=== PATIENT | male | born 1960 ===

== ENCOUNTER 2023-04-03 01:19 | Emergency (ER) | payer SELFPAY ==
[~2023-04-03] VITALS: Ht 175.6 cm; Wt 68.0 kg
--- NOTE | 2023-04-03 02:51 | ED Abdominal Pain ---
General Chief Complaint: Abdominal/GI Problems Stated Complaint: VOMITING Nursing Triage Note: TO ROOM VIA W/C WITH COMPLAINT OF ABDOMINAL PAIN. PATIENT STATES STARTED THIS EVENING, HAS HAD A COLD LAST WEEK. PATIENT VOMITTED X8. DENIES DIARRHEA. Source of Information: Patient Exam Limitations: No Limitations History of Present Illness Date Seen by Provider: Apr 03, 2023 Time Seen by Provider: 02:51 Initial Comments Patient is a 63-year-old male brought to the emergency department by his significant other chief complaint epigastric abdominal pain onset this evening with nausea vomiting and dry heaves. He has had "cold symptoms" according to his significant other for the last week. Cough congestion, runny nose. He does not drink alcohol. No sick contacts that the girlfriend is aware of. He states that he did not vomit any coffee-ground emesis or blood. Last bowel movement was yesterday and he reports it was normal. No problems with urination. At the time of my evaluation the patient has been resting in the examination room, pain-free. He states his nausea has also been improving. He has never had anything quite like this before. Denies headache. Denies recent fever. Does not take any daily medications. No allergies to medications. No prior abdominal surgeries. Timing/Duration: 4-6 Hours Severity/Quality: Severe, Sharp Location: Epigastric Radiation: No Radiation Activities at Onset: None Associated Symptoms: Denies Symptoms Allergies and Home Medications Allergies Coded Allergies: No Known Drug Allergies (Unverified , 04/03/23) Patient Home Medication List Home Medication List Reviewed: Yes Ondansetron (Ondansetron Odt) 4 Mg Tab.rapdis, 4 MG SL Q6H PRN for NAUSEA/VOMITING Prescribed by: KERRIE ALVARADO on 04/03/23 0350 Review of Systems Review of Systems Constitutional: see HPI Respiratory: No Symptoms Reported Cardiovascular: No Symptoms Reported Gastrointestinal: Abdominal Pain; Denies Blood Streaked Stools, Denies Diarrhea; Nausea; Denies Rectal Bleeding; Vomiting Genitourinary: No Symptoms Reported Musculoskeletal: no symptoms reported Skin: no symptoms reported Psychiatric/Neurological: No Symptoms Reported All Other Systems Reviewed Negative Unless Noted: Yes Past Mvaripe-Jbrpyb-Ejhena Hx Patient Social History Tobacco Use?: Yes Tobacco type used: Cigarettes Smoking Status: Current Everyday Smoker Substance use?: Yes Substance type: Marijuana Substance frequency: Couple times a week Immunizations Up To Date Influenza Vaccine Up-to-Date: No; Not Current Physical Exam Vital Signs Vital Signs - First Documented 04/03/23 01:40 Temp 36.9 Pulse 84 Resp 18 B/P (MAP) 139/86 (103) Pulse Ox 95 O2 Delivery Room Air Capillary Refill : Less Than 3 Seconds Height/Weight/BMI Height: '" Weight: lbs. oz. kg; 22.00 BMI Method: General Appearance: no apparent distress, thin HEENT: PERRL/EOMI Respiratory: lungs clear, normal breath sounds, no respiratory distress, respiratory distress Cardiovascular: regular rate, rhythm Gastrointestinal: normal bowel sounds, non tender, soft, no pulsatile mass Extremities: normal range of motion, normal inspection, no pedal edema, normal capillary refill Neurologic/Psychiatric: alert, normal mood/affect, oriented x 3 Skin: normal color, warm/dry Progress/Results/Core Measures Results/Orders Lab Results Laboratory Tests Test 04/03/23 01:45 Range/Units White Blood Count 9.0 4.3-11.0 10^3/uL Red Blood Count 4.27 L 4.30-5.52 10^6/uL Hemoglobin 14.0 13.3-17.7 g/dL Hematocrit 43 40-54 % Mean Corpuscular Volume 101 H 80-99 fL Mean Corpuscular Hemoglobin 33 25-34 pg Mean Corpuscular Hemoglobin Concent 32 32-36 g/dL Red Cell Distribution Width 12.8 10.0-14.5 % Platelet Count 289 130-400 10^3/uL Mean Platelet Volume 9.8 9.0-12.2 fL Immature Granulocyte % (Auto) 0 % Neutrophils (%) (Auto) 77 H 42-75 % Lymphocytes (%) (Auto) 12 12-44 % Monocytes (%) (Auto) 7 0-12 % Eosinophils (%) (Auto) 3 0-10 % Basophils (%) (Auto) 0 0-10 % Neutrophils # (Auto) 6.9 1.8-7.8 10^3/uL Lymphocytes # (Auto) 1.1 1.0-4.0 10^3/uL Monocytes # (Auto) 0.7 0.0-1.0 10^3/uL Eosinophils # (Auto) 0.2 0.0-0.3 10^3/uL Basophils # (Auto) 0.0 0.0-0.1 10^3/uL Immature Granulocyte # (Auto) 0.0 0.0-0.1 10^3/uL Sodium Level 136 135-145 MMOL/L Potassium Level 3.9 3.6-5.0 MMOL/L Chloride Level 104 98-107 MMOL/L Carbon Dioxide Level 22 21-32 MMOL/L Anion Gap 10 5-14 MMOL/L Blood Urea Nitrogen 13 7-18 MG/DL Creatinine 0.87 0.60-1.30 MG/DL Estimat Glomerular Filtration Rate 98 BUN/Creatinine Ratio 15 Glucose Level 120 H 70-105 MG/DL Calcium Level 8.8 8.5-10.1 MG/DL Corrected Calcium 8.8 8.5-10.1 MG/DL Total Bilirubin 0.4 0.1-1.0 MG/DL Aspartate Amino Transf (AST/SGOT) 26 5-34 U/L Alanine Aminotransferase (ALT/SGPT) 27 0-55 U/L Alkaline Phosphatase 105 40-136 U/L Total Protein 7.8 6.4-8.2 GM/DL Albumin 4.0 3.2-4.5 GM/DL Lipase 21 8-78 U/L My Orders Orders - KERRIE ALVARADO MD Ed Iv/Invasive Line Start (04/03/23 03:02) Cbc And Automated Diff (04/03/23 03:02) Comprehensive Metabolic Panel (04/03/23 03:02) Lipase (04/03/23 03:02) Ns Iv 1000 Ml (Ns Iv 1000 Ml) (04/03/23 03:02) Ondansetron Injection (Ondansetron Inj (04/03/23 03:15) Medications Given in ED Current Medications Medications Dose Ordered Sig/Abisai Route Start Time Stop Time Status Last Admin Dose Admin Ondansetron HCl 8 mg ONCE ONCE IVP 04/03/23 03:15 04/03/23 03:16 DC 04/03/23 03:24 8 MG Vital Signs/I&O 04/03/23 04/03/23 01:40 03:54 Temp 36.9 Pulse 84 89 Resp 18 20 B/P (MAP) 139/86 (103) 131/76 Pulse Ox 95 O2 Delivery Room Air Blood Pressure Mean: 103 Progress Progress Note : Time: 03:35 Progress Note Patient seen and evaluated by me. Evaluation today includes physical exam, CBC, Chem-12. Pertinent physical exam findings thin elderly appearing male in no acute distress. Vital signs are stable. Heart is regular, not tachycardic. Lungs are clear. Abdomen is soft, nontender, no involuntary guarding or rebound Differential diagnosis includes viral gastroenteritis/gastritis, kidney stone, peptic ulcer disease, cholecystitis/lithiasis Patient labs independently reviewed and interpreted by me. His CBC is normal. Chemistry is normal, glucose of 120. Lipase normal at 21. Patient is treated in the emergency department with a liter of normal saline as well as 4 mg of IV ondansetron. He had no deterioration in his condition during his visit in the emergency department. No concerning findings for acute surgical process in the abdomen. He denied hematuria, ongoing pain in the abdomen or flanks. Low clinical concern for kidney stone. He has no Cent[place] sign, tenderness at all in the right upper quadrant. I have recommended that he follow-up with a primary care provider for further health maintenance. Return precautions provided in both verbal and written format. All questions are sought and answered. Patient is stable and improved at discharge. Departure Impression Primary Impression: Abdominal pain Qualified Codes: R10.13 - Epigastric pain Disposition: 01 HOME, SELF-CARE Condition: Improved Departure-Patient Inst. Decision time for Depature: 03:37 Referrals: [facility]/ Patient Instructions: Nausea and Vomiting, Adult ED Add. Discharge Instructions: I have sent a prescription for ondansetron/Zofran 4 mg disintegrating tablets to your pharmacy. You can take 1 every 6 hours as needed for nausea. If you develop a return of abdominal pain especially with fever and vomiting please return to the emergency department for reevaluation. Please call [facility] to establish care and for reevaluation. Scripts Ondansetron (Ondansetron Odt) 4 Mg Tab.rapdis 4 MG SL Q6H PRN for NAUSEA/VOMITING, #10 TAB Prov: KERRIE ALVARADO MD 04/03/23 KERRIE ALVARADO MD Apr 03, 2023 02:51
[2023-04-03] MEDS ORDERED: NS IV 1000 ML 1,000 ML IV STA (03:02)
[2023-04-03 03:09] LABS: BASOPHILS % (AUTO) 0 % (0-10); EOSINOPHILS # (AUTO) 0.2 10^3/uL (0.0-0.3); EOSINOPHILS % (AUTO) 3 % (0-10); HEMATOCRIT 43 % (40-54); LYMPHOCYTES # (AUTO) 1.1 10^3/uL (1.0-4.0); LYMPHOCYTES % (AUTO) 12 % (12-44); MEAN CORPUSCULAR HEMOGLOBIN 33 pg (25-34); MEAN CORPUSCULAR HGB CONC 32 g/dL (32-36); MEAN CORPUSCULAR VOLUME 101 fL (80-99); MEAN PLATELET VOLUME 9.8 fL (9.0-12.2); MONOCYTES # (AUTO) 0.7 10^3/uL (0.0-1.0); MONOCYTES % (AUTO) 7 % (0-12); NEUTROPHILS # (AUTO) 6.9 10^3/uL (1.8-7.8); NEUTROPHILS % (AUTO) 77 % (42-75); PLATELET COUNT 289 10^3/uL (130-400)
[2023-04-03 03:11] LABS: POTASSIUM 3.9 MMOL/L (3.6-5.0)
[2023-04-03 03:12] LABS: CALCIUM 8.8 MG/DL (8.5-10.1)
[2023-04-03 03:13] LABS: TOTAL PROTEIN 7.8 GM/DL (6.4-8.2)
[2023-04-03 03:15] LABS: BILIRUBIN,TOTAL 0.4 MG/DL (0.1-1.0)
[2023-04-03] MEDS ORDERED: ONDANSETRON INJECTION 4 MG/2 ML (SDV) IVP ONE (03:15)
[2023-04-03 03:17] LABS: CREATININE SERUM 0.87 MG/DL (0.60-1.30)
[2023-04-03] MEDS ORDERED: ONDA4TAB11 SL (03:50)
[2023-04-03 03:54] VITALS: BP 131/76
== END 2023-04-03 03:56 | disposition home or self-care (01) ==
LOC: EDUNIT# 01:19 → ER 01:22
DX: R10.13 Epigastric pain (principal); R11.2 Nausea with vomiting, unspecified; F17.210 Nicotine dependence, cigarettes, uncomplicated
CPT/HCPCS: 36415; 80053; 83690; 85025; 96374